=== PATIENT | female | born 1945 | race Caucasian/White ===

== ENCOUNTER 2016-10-16 07:24 | Day surgery (SDC) | payer MEDICARE, OTHER ==
[~2016-10-16 07:24] MED LIST: Lactated Ringers 1,000 ML IV SCH
[2016-10-16] MEDS ORDERED: Propofol 200 MG/20 ML SDV ONE (08:32)
[2016-10-16 10:20] VITALS: BP 131/43
--- NOTE | 2016-10-16 16:50 | OR ---
PREOPERATIVE DIAGNOSIS: History of polyps. POSTOPERATIVE DIAGNOSIS: One small polyp at 15 cm removed, otherwise normal exam. PROCEDURE PROPOSED: Total flexible colonoscopy. PROCEDURE DONE: Total flexible colonoscopy with polypectomy x1. INDICATION: This is a 71-year-old female, who comes in for recommended colonoscopy due to a history of polyps. Her last examination was 3 years ago. TECHNIQUE: The patient was brought to the endoscopy suite, placed in left lateral decubitus position. She was sedated with propofol per [employer]. The flexible video colonoscope was then passed transanally and under visualization advanced to the cecum. Examination revealed a normal ascending, transverse, and descending colon. In the low sigmoid at about 15 cm, there was a small polyp removed with 2 bites of the cold biopsy forceps and submitted for pathologic examination. The remainder of the rectum was normal. The scope was then withdrawn. The patient tolerated the procedure well. FINAL IMPRESSION: 1. Low sigmoid polyp at 15 cm removed, otherwise normal exam. 2. History of prior polyps. PLAN: She will be sent a letter with pathology report. I felt she could wait 5 years before she needs a repeat exam. SCM: 10/16/2016 09:37:31 MODL: 10/16/2016 16:42:13 /[id number]
--- NOTE | 2016-10-27 08:04 | LETTER ---
10/25/2016 RE: ABY MILLAN : 1945 Dear Aby, The polyp removed from your colon was a precancerous polyp known as an adenoma. It was very small and insignificant, however, and with your history of polyps, I feel that you should continue to have colonoscopies every 5 years. Respectfully,
== END 2016-10-16 10:55 | disposition home or self-care (01) ==
LOC: VM.SDS 07:24
PROVIDERS: ATTEND Surgery
DX: Z12.11 Encounter for screening for malignant neoplasm of colon (principal); D12.6 Benign neoplasm of colon, unspecified; Z86.010 Personal history of colon polyps; I48.2 Chronic atrial fibrillation; E04.1 Nontoxic single thyroid nodule; F41.9 Anxiety disorder, unspecified; I50.32 Chronic diastolic (congestive) heart failure; R91.1 Solitary pulmonary nodule; E03.4 Atrophy of thyroid (acquired); I25.10 Atherosclerotic heart disease of native coronary artery without angina pectoris; E78.5 Hyperlipidemia, unspecified; K21.9 Gastro-esophageal reflux disease without esophagitis; J44.9 Chronic obstructive pulmonary disease, unspecified; I08.0 Rheumatic disorders of both mitral and aortic valves; M19.90 Unspecified osteoarthritis, unspecified site; M81.0 Age-related osteoporosis without current pathological fracture; I70.203 Unspecified atherosclerosis of native arteries of extremities, bilateral legs; Z99.81 Dependence on supplemental oxygen; Z79.01 Long term (current) use of anticoagulants; Z79.899 Other long term (current) drug therapy; Z90.49 Acquired absence of other specified parts of digestive tract; Z98.890 Other specified postprocedural states; Z87.891 Personal history of nicotine dependence
CPT/HCPCS: 00810; 36415; 45380; 85610; J2704; J7120; 88305